=== PATIENT | female | born 1970 | race Two or more races ===

== ENCOUNTER 2017-01-31 16:42 | Emergency (ER) | payer OTHER ==
[~2017-01-31] VITALS: Ht 162.6 cm; Wt 68.5 kg
[2017-01-31 16:55] VITALS: BP 144/92
[2017-01-31] MEDS ORDERED: SODIUM CHLORIDE 0.9% 1,000 ML IV ONE (19:30)
[2017-01-31 20:17] LABS: Basophils # (auto) 0 uL; CONDITION AutoValidated; Eosinophils # (auto) 0 uL; Lymphocytes # (auto) 0.7 uL; Neutrophils # (auto) 4.7 uL; Red Cell Distribution Width 14.3 % (11.6-16.0)
[2017-01-31 20:37] LABS: Basophils % (auto) 0.1 % (0.0-2.0); Hematocrit 40.4 % (36.0-46.0); Hemoglobin 13.9 g/dL (12.2-16.2); Lymphocytes % (auto) 12.8 % (10.0-50.0); Mean Corpuscular Hemoglobin 30.4 pg (28.0-32.0); Mean Corpuscular Hgb Conc. 34.3 g/dL (32.0-36.0); Mean Corpuscular Volume 88.7 fL (80.0-100.0); Mean Platelet Volume 9.1 fL (7.4-10.4); Monocytes # (auto) 0.3 uL; Monocytes % (auto) 5.6 % (0.0-12.0); Neutrophils % (auto) 81.5 % (37.0-80.0); Platelet Count (auto) 206 10^3/uL (140-450); White Blood Cell 5.7 10^3/uL (4.4-10.8)
[2017-01-31 20:37] LABS: Urine Bilirubin Negative (Negative); Urine Blood Negative /uL (Negative); Urine Color Yellow (Yellow); Urine Glucose Normal (Normal); Urine Ketone Negative (Negative); Urine Mucus FEW (None Seen); Urine Nitrite Negative (Negative); Urine RBC None Seen /hpf (0 - 4); Urine Squamous Epithelial Cell FEW /hpf (<5); Urine Urobilinogen Normal (Negative); Urine pH 5.5 (5.0-8.0)
[2017-01-31 20:45] LABS: Albumin 3.4 g/dL (3.4-5.0); BUN/Creatinine Ratio 8.6; Calcium 7.9 mg/dL (8.5-10.1); Potassium 3.6 mmol/L (3.5-5.1)
[2017-01-31 20:54] LABS: Bilirubin, Total 0.1 mg/dL (0.2-1.0); Total Protein 7.3 g/dL (6.4-8.2)
[2017-01-31] MEDS ORDERED: IBUPROFEN 600 MG TAB PO ONE (21:15)
[2017-01-31] MEDS ORDERED: ONDANSETRON HCL 4 MG/2 ML VIAL IV ONE (21:30)
== END 2017-01-31 22:10 | disposition home or self-care (01) ==
LOC: ER 16:44
DX: B34.9 Viral infection, unspecified (principal); R53.1 Weakness; R51 Headache
CPT/HCPCS: 36415; 70450; 80053; 81001; 83605; 85025; 87040; 96361; 96374; 99285; J2405; J7030